=== PATIENT | male | born 1970 | race Caucasian/White ===

== ENCOUNTER 2017-09-29 10:43 | Emergency (ER) | payer BC ==
[~2017-09-29] VITALS: Ht 190.5 cm; Wt 97.7 kg
[2017-09-29 10:50] VITALS: Ht 190.5 cm; Wt 97.7 kg
[2017-09-29] MEDS ORDERED: COREG12.5 MG PO ×2 (11:12→11:45)
[2017-09-29] MEDS ORDERED: LISINOPRIL10 MG PO ×2 (11:13→13:11)
[2017-09-29] MEDS ORDERED: GEMFIBROZIL600 MG PO ×2 (11:13→13:11)
[2017-09-29 11:18] LABS: BASOPHILS 0.2 % (0-2); EOSINOPHILS 1.5 % (0-7); HEMATOCRIT 48.2 % (42.0-54.0); HEMOGLOBIN 17.1 g/dL (13.5-17.5); IMMATURE GRANULOCYTES 0.4 % (0-5); LYMPHOCYTES 30.2 % (15-50); MCHC 35.5 g/dL (31.0-37.0); MCV 95.8 fL (80.0-100.0); MEAN PLATELET VOLUME 10.6 fL (7.4-10.4); MONOCYTES 11.1 % (2-11); NEUTROPHILS 56.6 % (40-80); PLATELET COUNT 279 10x3/uL (130-400); RBC 5.03 10x6/uL (4.20-6.10); RDW 12.4 % (11.5-14.5); WBC 12.4 10x3/uL (4.8-10.8)
[2017-09-29 11:26] LABS: INR 0.96 (0.85-1.17); PROTIME 12.4 SECONDS (11.6-15.0)
[2017-09-29 11:39] LABS: ALBUMIN 4.3 g/dL (3.4-5.0); ALKALINE PHOSPHATASE 87 U/L (46-116); ALT (SGPT) 71 U/L (10-68); BILIRUBIN - TOTAL 0.69 mg/dL (0.2-1.3); CALC OSMOLALITY 275 mosm/kg (275-300); CALCIUM 9.7 mg/dL (8.5-10.1); CARBON DIOXIDE 22.4 mmol/L (21.0-32.0); CHLORIDE - SERUM 102 mmol/L (98-107); GLUCOSE 122 mg/dL (74-106); POTASSIUM - SERUM 4.5 mmol/L (3.5-5.1); PROTEIN - SERUM 8.2 g/dL (6.4-8.2); SODIUM 138 mmol/L (136-145); UREA NITROGEN 9 mg/dL (7-18); eGFR NON AFRICAN AMERICAN 86 mL/min (90-120)
[2017-09-29 12:07] LABS: CKMB 0.3 U/L (0.0-3.6); CREATINE KINASE 91 UL (21-232); PRO BNP 10 pg/mL (0-125); T4 THYROXINE 8.6 ug/dL (4.7-13.3)
[2017-09-29 12:09] LABS: TROPONIN-I < 0.017 ng/mL (0.000-0.060)
[2017-09-29 14:00] VITALS: BP 121/84
== END 2017-09-29 14:00 | disposition home or self-care (01) ==
LOC: D.ER 10:43
PROVIDERS: Emergency Medicine
DX: I47.1 Supraventricular tachycardia (principal); R00.2 Palpitations; F41.9 Anxiety disorder, unspecified; F17.200 Nicotine dependence, unspecified, uncomplicated

== ENCOUNTER → 2018-01-07 14:46 | Outpatient (CLI) | payer BC ==
[2017-09-29 10:50] VITALS: BMI 26.9
[~2018-01-07 14:46] MED LIST: CARDIZEM LA180 MG PO; COREG12.5 MG PO; GEMFIBROZIL600 MG PO; LISINOPRIL10 MG PO
[2018-01-07 17:34] LABS: CHOL - HDL RATIO 4.5 ratio (2.3-4.9); LDL-HDL RATIO 2.7 ratio (1.5-3.5)
== END | disposition home or self-care (01) ==
LOC: D.LABREF 14:46
PROVIDERS: Internal Medicine Cardiovascular Disease
DX: E78.5 Hyperlipidemia, unspecified (principal)

== ENCOUNTER 2018-01-19 13:19 | Emergency (ER) | payer BC ==
[~2018-01-19] VITALS: Ht 190.5 cm; Wt 100.0 kg
[~2018-01-19 13:19] MED LIST changes: -CARDIZEM LA180 MG PO
[2018-01-19] MEDS ORDERED: CARDIZEM LA180 MG PO (13:46)
[2018-01-19 14:06] LABS: BASOPHILS 0.4 % (0-2); EOSINOPHILS 1.2 % (0-7); HEMOGLOBIN 16.9 g/dL (13.5-17.5); IMMATURE GRANULOCYTES 0.4 % (0-5); LYMPHOCYTES 43.4 % (15-50); MCH 34.5 pg (26.0-34.0); MCV 95.9 fL (80.0-100.0); MEAN PLATELET VOLUME 10.8 fL (7.4-10.4); MONOCYTES 11.2 % (2-11); NEUTROPHILS 43.4 % (40-80); RDW 12.5 % (11.5-14.5); WBC 13.8 10x3/uL (4.8-10.8)
[2018-01-19 14:12] LABS: PLATELET COUNT 363 10x3/uL (130-400)
[2018-01-19 14:48] LABS: ALBUMIN 3.6 g/dL (3.4-5.0); ALKALINE PHOSPHATASE 68 U/L (46-116); ALT (SGPT) 34 U/L (10-68); BILIRUBIN - TOTAL 0.37 mg/dL (0.2-1.3); CALC OSMOLALITY 279 mosm/kg (275-300); CALCIUM 8.3 mg/dL (8.5-10.1); CARBON DIOXIDE 22.5 mmol/L (21.0-32.0); CHLORIDE - SERUM 107 mmol/L (98-107); CREATININE - SERUM 0.8 mg/dL (0.6-1.3); GLUCOSE 104 mg/dL (74-106); PROTEIN - SERUM 6.9 g/dL (6.4-8.2); SODIUM 141 mmol/L (136-145); UREA NITROGEN 11 mg/dL (7-18); eGFR NON AFRICAN AMERICAN > 90 mL/min (90-120)
[2018-01-19 14:58] LABS: CKMB 0.5 U/L (0.0-3.6); CREATINE KINASE 75 UL (21-232)
[2018-01-19 15:07] LABS: TROPONIN-I < 0.017 ng/mL (0.000-0.060)
[2018-01-19 15:20] VITALS: BP 113/82
[2018-01-19 15:36] VITALS: Ht 190.5 cm; Wt 100.0 kg
== END 2018-01-19 15:27 | disposition home or self-care (01) ==
LOC: D.ER 13:19
PROVIDERS: Emergency Medicine
DX: I47.1 Supraventricular tachycardia (principal); F17.200 Nicotine dependence, unspecified, uncomplicated

== ENCOUNTER → 2018-02-10 16:54 | Outpatient (CLI) | payer BC ==
[2018-01-19 15:36] VITALS: BMI 27.5
[~2018-02-10 16:54] MED LIST changes: +CARDIZEM LA180 MG PO
[2018-02-10 19:01] LABS: CHOL - HDL RATIO 3.6 ratio (2.3-4.9); LDL-HDL RATIO 1.6 ratio (1.5-3.5)
== END | disposition home or self-care (01) ==
LOC: D.LABREF 16:54
PROVIDERS: Internal Medicine Cardiovascular Disease
DX: E78.5 Hyperlipidemia, unspecified (principal)

== ENCOUNTER 2018-03-30 15:01 | Observation (INO) | payer BC ==
[2018-03-30] VITALS (9 sets, daily range): BP systolic 105–138; BP diastolic 60–86
[~2018-03-30] VITALS: Ht 190.5 cm; Wt 93.6 kg
--- NOTE | ~2018-03-30 | DS ---
PATIENT:GENTRY ENNIS :74 MEDICAL RECORD: [id number] DISCHARGE SUMMARY ADMISSION DATE: 03/30/18 DISCHARGE DATE: 03/31/18 DISCHARGE DIAGNOSES: 1. Chest pain compatible with angina. 2. Normal cardiac catheterizations. 3. History of supraventricular tachycardia. HOSPITAL COURSE: Mr. Ennis presents with palpitations and chest pain. He had no dysrhythmias during the hospital stay and cardiac catheterization was normal. Discharged home with no change in his medication. TRANSINT:[id number] Voice Confirmation ID: [id number] DOCUMENT ID: [id number] BRIAN OSULLIVAN MD CC: [id number] DICTATION DATE: 03/31/18 1012 SUPERVISOR FRUIT GRADING: 04/01/18 0031 DIS IN 03/31/18 [place] [id number] [place] [address]
--- NOTE | ~2018-03-30 | HEMODYNAMI ---
PATIENT:GENTRY GALLAGHER MEDICAL RECORD: [id number] : 74 LOCATION:[address] ADMISSION DATE: 03/30/18 Generatedon:03/31/201810:03 Patient name: GENTRY GALLAGHER Patient #: [id number] SSN: DO B: 1970 Date of study: 03/31/2018 Page: Of Hemodynamic Procedure Report Patient Data Patient Demographics Procedure consent was obtained First Name: GENTRY Gender: Male Last Name: ELLIOTT : 1970 Patient #: [id number] Age: 47 year(s) Race: Unknown Additional ID: [id number] Contact details Address: [place] [address] State: [place] City: [place] Zip code: [address] Past Medical History Allergies Allergen Reaction Date Comments Reported Morphine 03/31/2018 Admission Admission Data Admission Date: 03/30/2018 Admission Time: 17:39 Room #: 2139 Procedure Procedure Types Cath Procedure Diagnostic Procedure LHC LHC w/Coronaries Procedure Description Procedure Date Procedure Date: 03/31/2018 Procedure Start Time: 9:53 Procedure End Time: 10:02 Procedure Staff Name Function Juan Luis Kidd MD Performing Physician Lourdes Sanders RT Monitor Josefa Anderson RN Nurse Charli Blanca RT Scrub Procedure Data Cath Procedure Fluoroscopy Diagnostic fluoroscopy Total fluoroscopy Time: 2.3 time: 2.3 min min Diagnostic fluoroscopy Total fluoroscopy dose: 319 dose: 319 mGy mGy Contrast Material Contrast Material Type Amount (ml) Isovue 300 42 Entry Location Entry Primary Successful Side Size Upsize Upsize Entry Closure Weiner ccessful Closure Location (Fr) 1 (Fr) 2 (Fr) Remarks Device Remarks Radial Right 6 Fr Mechanical artery Short Compression Estimated blood loss: 5 ml Diagnostic catheters Device Type Used For End Catheter Placement DIAGNOSTIC Ogden 110cm 5 LV Angiography Fr catheter ([id number]) DIAGNOSTIC Ogden 110cm 5 Left Coronary Fr catheter ([id number]) Angiography DIAGNOSTIC AR2 MOD 5 Fr Right Coronary catheter ([id number]) Angiography Procedure Complications No complications Procedure Medications Medication Administration Route Dosage Benadryl I.V. 50 mg Oxygen etCO2 Nasal cannula 2 l/min Lidocaine 2% added to field 20 Heparin Flush Bag added to field 2 bags (1000units/500ml NS) 0.9% NaCl I.V. 100 ml/hr Radial Cocktail added to field 1 syringe (Verapomil 2mg/Nitro 400mcg/Heparin 1500units) Versed I.V. 2 mg Fentanyl I.V. 100 mcg Versed I.V. 2 mg Fentanyl I.V. 50 mcg Versed I.V. 2 mg Fentanyl I.V. 50 mcg Hemodynamics Rest Heart Rate: 71 (bpm) Snapshots Pre Cath Intra NCS Post Cath Vital Signs Time Heart Resp SPO2 etCO2 NIBP (mmHg) Rhythm Pain Sedation Rate (ipm) (%) (mmHg) Status Level (bpm) 9:36:15 69 15 98 0 139/93(112) NSR 0 (11) 10(A) , No pain 9:40:24 73 19 97 0 146/99(119) NSR 0 (11) 10(A) , No pain 9:44:38 75 13 95 30.3 124/91(101) NSR 0 (11) 10(A) , No pain 9:48:44 75 30 96 31.8 126/86(102) NSR 0 (11) 10(A) , No pain 9:52:54 68 16 94 35.6 117/78(98) NSR 0 (11) 10(A) , No pain 9:57:00 85 15 95 25.7 105/78(87) NSR 0 (11) 9(A) , No pain 10:01:04 77 18 94 32.6 124/73(98) NSR 0 (11) 10(A) , No pain Medications Time Medication Route Dose Verified Delivered Reason Notes Effectiveness by by 9:39:52 Benadryl I.V. 50 mg Juan Luis Rivero used for Bernabe Anderson muskrat trapper 9:42:52 Oxygen etCO2 2 l/min Juan Luis Rivero used for Nasal Beranbe Anderson muskrat trapper cannula 9:42:58 Lidocaine 2% added 20ml Juan Luis Mcknight for local to vial Bernabe Kidd MD anesthetic field 9:43:04 Heparin Flush added 2 bags Juan Luis Mcknight used for Bag to Bernabe Kidd MD procedure (1000units/500ml field NS) 9:43:13 0.9% NaCl I.V. 100 Juan Luis Rivero Per ml/hr Bernabe Anderson RN physician 9:43:20 Radial Cocktail added 1 Juan Luis Mcknight for (Verapomil to syringe Bernabe Kidd MD vasodilation 2mg/Nitro field 400mcg/Heparin 1500units) 9:49:48 Versed I.V. 2 mg Juan Luis Riveraie for sedation Bernabe Anderson RN 9:49:55 Fentanyl I.V. 100 mcg Juan Luis Riveraie for sedation Bernabe Anderson RN 9:54:54 Versed I.V. 2 mg Juan Luis Riveraie for sedation Bernabe Anderson RN 9:54:58 Fentanyl I.V. 50 mcg Juan Luis Riveraie for sedation Bernabe Anderson RN 9:58:02 Versed I.V. 2 mg Juan Luis Riveraie for sedation Bernabe Anderson RN 9:58:08 Fentanyl I.V. 50 mcg Juan Luis Rivero for sedation Bernabe Anderson RN Procedure Log Time Note 9:18:35 Time tracking: Regular hours (M-F 7:00 - 5:00) 9:18:40 Plan of Care:Hemodynamics will remain stable., Cardiac rhythm will remain stable., Comfort level will be maintained., Respiratory function will remain adequate., Patient/ family verbilizes understanding of procedure., Procedure tolerated without complication., Recovers from procedure without complications.. 9:19:28 Josefa Anderson RN sent for patient. Start room use. 9:30:08 Patient received from Med II to CCL 2 Alert and oriented. Tansferred to table in Supine position. 9:30:10 Warm blankets applied, and iona hugger turned on for patient comfort. 9:30:10 Correct patient and procedure confirmed by team. 9:30:17 Signed procedure consent form obtained from patient. 9:30:17 ECG and BP/O2 sat monitors applied to patient. 9:30:36 H&P Date Dictated: 03/30/2018 Emergent; H&P N/A. 9:35:04 Vital chart was started 9:35:08 Rhythm: sinus rhythm 9:35:09 Full Disclosure recording started 9:36:57 Baseline sample Acquired. 9:37:03 Pre-procedure instructions explained to patient. 9:37:07 Pre-op teaching completed and patient verbalized understanding. 9:37:22 Family in patients room. 9:37:28 Patient NPO since Midnight. 9:37:52 Patient allergic to Morphine 9:38:02 Is the patient allergic to Iodine/contrast media? No. 9:38:08 Is patient on blood thinner?Yes 9:38:20 ACC The patient was administered the following blood thiners within the last 24 hours: ACCPlavix 9:38:29 Patient diabetic? No. 9:38:43 ----Pre-sedation anethsthesia assessment.---- 9:38:49 Previous problem with sedation/anesthesia? No ? 9:38:52 Snore? Yes 9:38:56 Sleep apnea? No 9:38:59 Deviated septum? No 9:39:01 Opens mouth fully? Yes 9:39:02 Sticks out tongue? Yes 9:39:07 Airway obstruction? No ? 9:39:11 Dentures? No ? 9:39:41 IV patent on arrival in right antecubital with 0.9% NaCl at 100ml/hr. 9:39:52 Benadryl 50 mg I.V. was administered by Josefa Anderson RN; used for procedure; 9:40:11 Modified Riccardo's test Radial > 7 seconds. 9:40:33 Patient pain scale 0/10 ?. 9:42:52 Oxygen 2 l/min etCO2 Nasal cannula was administered by Josefa Anderson RN; used for procedure; 9:42:58 Lidocaine 2% 20ml vial added to field was administered by Juan Luis Kidd MD; for local anesthetic; 9:43:04 Heparin Flush Bag (1000units/500ml NS) 2 bags added to field was administered by Juan Luis Kidd MD; used for procedure; 9:43:13 0.9% NaCl 100 ml/hr I.V. was administered by Josefa Anderson RN; Per physician; 9:43:13 Right Radial & Right Groin area was prepped with chlora-prep and draped in sterile fashion 9:43:15 Alarms reviewed by R. N. 9:43:15 Sharps counted by scrub and verified by R.N. 9:43:20 Radial Cocktail (Verapomil 2mg/Nitro 400mcg/Heparin 1500units) 1 syringe added to field was administered by Juan Luis Kidd MD; for vasodilation; 9:43:20 Lab results completed and on chart. 9:43:25 Use device set Radial Dx or PCI 9:43:26 ACIST Syringe (41204) opened to sterile field. 9:43:26 Medline Cath Pack ([id number]) opened to sterile field. 9:43:27 Bag Decanter (2002S) opened to sterile field. 9:43:27 DIAGNOSTIC WIRE .035 260cm J wire (715935) opened to sterile field. 9:43:28 ACIST Hand Control (96677) opened to sterile field. 9:43:28 ACIST Manifold (82132) opened to sterile field. 9:43:29 Tegaderm 4 x 4 (1626W) opened to sterile field. 9:43:29 MBrace Wrist Support ([id number]) opened to sterile field. 9:43:30 SHEATH 6FR Slender (22-5162) opened to sterile field. 9:47:57 Zero performed for pressure channel P1 9:48:42 Final Timeout: patient, procedure, and site verified with staff and physician. All members of the team are in agreement. 9:48:45 Right Radial & Right Groin site verified by team. 9:48:47 Physical assessment completed. ASA score P 2 - A patient with mild systemic disease as per Juan Luis Kidd MD. 9:48:51 Sedation plan: IV Moderate Sedation Medication:Versed, Fentanyl 9:49:48 Versed 2 mg I.V. was administered by Josefa Anderson RN; for sedation; 9:49:55 Fentanyl 100 mcg I.V. was administered by Josefa Anderson RN; for sedation; 9:53:15 Procedure started. 9:53:20 Local anesthetic to right radial artery with Lidocaine 2% by Juan Luis Kidd MD.INITIAL ACCESS ONLY 9:53:55 A 6 Fr Short sheath was inserted into the Right Radial artery 9:54:42 A DIAGNOSTIC Ogden 110cm 5 Fr catheter (648531) was advanced over the wire and used for LV Angiography. 9:54:54 Versed 2 mg I.V. was administered by Josefa Anderson RN; for sedation; 9:54:58 Fentanyl 50 mcg I.V. was administered by Josefa Anderson RN; for sedation; 9:55:52 LV gram done using MOREIRA 9:56:02 Injector settings: Ml/sec: 5, Volume: 15, 9:56:07 EF : 60 % 9:56:42 A DIAGNOSTIC Ogden 110cm 5 Fr catheter ([id number]) was advanced over the wire and used for Left Coronary Angiography. removed unable to cannulate 9:57:43 A DIAGNOSTIC AR2 MOD 5 Fr catheter ([id number]) was advanced over the wire and used for Right Coronary Angiography. 9:58:02 Versed 2 mg I.V. was administered by Josefa Anderson RN; for sedation; 9:58:08 Fentanyl 50 mcg I.V. was administered by Josefa Anderson RN; for sedation; 9:58:13 Catheter removed. 9:59:11 COCIERGE ULT1 GUIDE CATHETER ADVANCED FOR LCA ANGIOGRAPHY (NO COST SUPPLY) 9:59:35 TR BAND Standard ([id number]) opened to sterile field. 9:59:49 Catheter removed. 10:00:07 Sheath removed intact; hemostasis achieved with Mechanical Compression to the Right Radial artery. 10:00:14 Procedure ended.(Physican Out) 10:00:23 Fluoroscopy time 02.30 minutes. 10:00:27 Fluoroscopy dose: 319 mGy 10:00:27 Flurop Dose total: 319 10:00:30 Contrast amount:Isovue 300 42ml. 10:00:31 Sharps counted by scrub and verified by R.N. 10:00:34 TR band inflated with 8cc of air. 10:00:35 Insertion/operative site no bleeding no hematoma. 10:00:47 Post right radial artery:stable, clean and dry 10:00:48 Post Procedure Pulses reassessed and unchanged 10:00:52 Post-procedure physical assessment completed. ASA score P 2 - A patient with mild systemic disease as per Juan Luis Kidd MD. 10:00:55 Post procedure rhythm: unchanged. 10:00:58 Estimated blood loss: 5 ml 10:00:59 Post procedure instruction explained to patient.Patient verbalizes understanding. 10:01:00 Patient needs reinforcement of post procedure teaching. 10:01:49 Procedure and supply charges have been captured, reviewed, submitted and are correct. 10:01:57 Procedure Complication : No complications 10:02:00 See physician's report for complete and final results. 10:02:20 Report given to Pre/Post Procedure Room. 10:02:23 Patient transfered to Pre/Post Procedure Room with Stretcher. 10:02:40 Procedure ended. 10:02:40 Full Disclosure recording stopped 10:02:46 End room use (Document Last) 10:03:29 Vital chart was stopped Device Usage Item Name Manufacture Quantity Catalog Hospital Part Current Minimal Lot# / Number Charge Number Stock Stock Serial# Code ACIST Acist 1 20335 [id number] [id number] [id number] 20 Syringe Medical (37517) Systems Inc Medline Medline 1 [id number] 067199 29045 085186 5 Cath Pack ([id number]) Bag Microtek 1 2001S 381705 05954 532552 5 Decanter Medical Inc. (2001S) DIAGNOSTIC [address] 1 379681 375017 111232 535196 30 WIRE .035 260cm J wire (351222) ACIST Hand Acist 1 16690 707604 527839 071262 5 Control Medical (36512) Systems Inc ACIST Acist 1 68763 747735 846341 445529 5 Manifold Medical (27837) Systems Inc Tegaderm 4 3M 1 1626W 088885 794486 445144 5 x 4 (1626W) MBrace Advanced 1 140-0250-00 143311 32900 065080 5 Wrist Vascular Support Dynamics ([id number]) SHEATH 6FR Terumo 1 [id number] 511078 594369 446407 40 Slender (80-1060) DIAGNOSTIC Terumo 1 40-8683 119585 174276 335947 5 Ogden 110cm 5 Fr catheter (385703) DIAGNOSTIC Cardinal 1 [id number] 379930 893809 941415 20 AR2 MOD 5 Health Fr catheter (056613O) TR BAND Terumo 1 [id number] 548320 524013 171055 40 Standard ([id number]) Signature Audit Dyer Stage Time Signature Unsigned Intra-Procedure 03/31/2018 [place] 10:03:26 AM Counts RT(R) Signatures Monitor : [place] Signature : Counts RT Date : Time : [facility] [address] [place] [address]
--- NOTE | ~2018-03-30 | OP ---
PATIENT NAME: GENTRY GALLAGHER MEDICAL RECORD: [id number] :74 [address]ATION:[address] [address] ADMISSION DATE:03/30/18 SURGEON: BRIAN OSULLIVAN MD DATE OF OPERATION: 03/31/2018 PROCEDURES: 1. Left heart catheterization. 2. Selective coronary angiography. 3. Left ventriculogram. INDICATION: Chest pain compatible with angina and abnormal nuclear stress test. PROCEDURE: After informed consent was obtained and after a detailed explanation of risks, benefits as well as alternative therapies, the patient elected to proceed with angiogram and angioplasty. The right radial area was prepped and draped in normal sterile fashion. Right radial artery was cannulated via modified Seldinger technique with placement of 5-Hungarian sheath. All catheters exchanged through this sheath. FINDINGS: The left ventriculogram was performed in standard 30-degree MOREIRA view, reveals good cardiac wall motion throughout all segments. Overall ejection fraction estimated 60%. SELECTIVE CORONARY ANGIOGRAPHY: Left main, left anterior descending, left circumflex, right coronary artery are all smooth-walled vessels with no angiographic evidence of coronary artery disease. OVERALL IMPRESSION: 1. No angiographic evidence of coronary artery disease. 2. Normal left heart pressures. 3. Normal left ventricular systolic function. Chest pain is noncardiac in etiology. No further cardiac workup needs to be ascertained. TRANSINT:[id number] Voice Confirmation ID: [id number] DOCUMENT ID: [id number] BRIAN OSULLIVAN MD CC: [id number] DICTATION DATE: 03/31/18 1011 TIN FLIPPER: 03/31/18 1142 ADM IN [place] [id number] [place] [address]
--- NOTE | ~2018-03-30 | HP ---
PATIENT: GENTRY ENNIS MEDICAL RECORD: [id number] ACCOUNT: [id number] LOCATION:[address] : 74 ADMISSION DATE: 03/30/18 PCP: BRIAN OSULLIVAN MD HISTORY AND PHYSICAL EXAMINATION DIAGNOSES: 1. Angina. 2. Abnormal nuclear stress test. 3. PSVT. 4. Hypertension. 5. Hyperlipidemia. HISTORY: Mr. Ennis presents with recurrent symptoms of shortness of breath and chest discomfort. He was feeling that he had palpitations as well. He had a history of PSVT. He recently had 2 episodes, converted with adenosine and one converted with a DC cardioversion. He underwent nuclear stress testing at our office which was abnormal with inferior ischemia. He has not undergone cardiac catheterization. REVIEW OF SYSTEMS: The patient reports easy bruising but reports no swollen glands. The patient reports no fever, no night sweats, no significant weight gain, no significant weight loss. No significant exercise tolerance. The patient reports no dry eyes, no irritation, no vision change. Patient reports no difficulty hearing and no ear pain. Patient reports no frequent nose bleeds or nose and sinus problems. Patient reports on arm pain on exertion. No shortness of breath while lying down. No history of heart murmur. Patient reports no cough, no wheezing or coughing up blood. Patient reports no abdominal pain, no vomiting. Normal appetite. No diarrhea and not vomiting blood. No nausea and no constipation. Patient reports no incontinence. No difficulty urinating. No hematuria. No increased frequency. Patient reports no muscle aches. No weakness, no arthralgias, no back pain. No swelling of the extremities. Patient reports no abnormal mole, no jaundice, no rashes. Reports no loss of consciousness. No weakness and no numbness. No seizures, dizziness, or headaches. The patient reports no depression, no sleep disturbance, feeling safe in a relationship and no alcohol abuse. Patient reports on fatigue. Reports no runny nose or sinus pressure. No itching, no hives, and no frequent sneezing. PHYSICAL EXAMINATION: GENERAL APPEARANCE: Well-nourished, well-developed, appears stated age. Level of distress, comfortable. PSYCHIATRIC: Mental status, alert, normal affect. Orientation, oriented to time, place and person. EYES: Lids and conjunctiva, noninjected. No discharge, no pallor. ENT: Lips, teeth, gums, normal dentition. Oropharynx, no cyanosis, no pallor. NECK: Carotid arteries, bilateral normal upstroke, no bruits, no thrills. JUGULAR VEINS: No jugular venous pressure or distention. CERVICAL LYMPH NODES: Nontender, nonenlarged. THYROID: Not enlarged. Nontender. No nodules. LUNGS: Respiratory effort, unlabored. CHEST: Normal curvature. No thoracic deformity. No chest wall tenderness. Percussion, resonant. Auscultation, clear. No wheezes, no rales, no rhonchi. CARDIOVASCULAR: Precordial exam, nondisplaced. No heaves or pericardial thrills. Rate and rhythm, regular. Heart sounds, normal S1, normal S2. No S3, no gallop, no rub. Systolic murmur, not heard. Diastolic murmur, not heard. HISTORY AND PHYSICAL [id number] GENTRY ENNIS EXTREMITIES: No cyanosis, no edema. Peripheral pulses, full and equal in all extremities, except as noted. No bruits appreciated. ABDOMEN: Soft, nondistended. Normal aorta. No bruit. Nontender. No masses. Liver, nontender, no hepatomegaly. Spleen, nontender, no splenomegaly. MUSCULOSKELETAL: No joint tenderness. No joint swelling. No erythema. NEUROLOGICAL: Normal gait, normal strength, normal tone. SKIN: Warm and dry. OVERALL IMPRESSION: Recurrent symptomatology, most likely secondary to ischemic heart disease. He is not having arrhythmia at this time. We will admit and plan for cardiac catheterization in the a.m. TRANSINT:[id number] Voice Confirmation ID: [id number] DOCUMENT ID: [id number] BRIAN OSULLIVAN MD at 1009 CC: [id number] DICTATION DATE: 03/30/18 1549 MAGAZINE EDITOR: 03/30/18 1741 ADM IN [facility] [address] [place] [address]
[2018-03-30 15:24] LABS: BASOPHILS 0.3 % (0-2); EOSINOPHILS 0.7 % (0-7); HEMATOCRIT 42.3 % (42.0-54.0); HEMOGLOBIN 15.3 g/dL (13.5-17.5); IMMATURE GRANULOCYTES 0.4 % (0-5); MCHC 36.2 g/dL (31.0-37.0); MEAN PLATELET VOLUME 10.3 fL (7.4-10.4); MONOCYTES 7.5 % (2-11); NEUTROPHILS 65.1 % (40-80); PLATELET COUNT 294 10x3/uL (130-400); RDW 12.2 % (11.5-14.5); WBC 10.2 10x3/uL (4.8-10.8)
[2018-03-30 16:08] LABS: MAGNESIUM - SERUM 1.9 mg/dL (1.8-2.4); THYROID STIMULATING HORMONE 0.98 uIU/mL (0.36-3.74)
[2018-03-30 16:28] LABS: ALBUMIN 4.7 g/dL (3.4-5.0); ALKALINE PHOSPHATASE 103 U/L (46-116); ALT (SGPT) 37 U/L (10-68); BILIRUBIN - TOTAL 0.53 mg/dL (0.2-1.3); CALC OSMOLALITY 268 mosm/kg (275-300); CALCIUM 9.4 mg/dL (8.5-10.1); CARBON DIOXIDE 18.9 mmol/L (21.0-32.0); CHLORIDE - SERUM 98 mmol/L (98-107); CREATININE - SERUM 0.8 mg/dL (0.6-1.3); GLUCOSE 104 mg/dL (74-106); POTASSIUM - SERUM 3.8 mmol/L (3.5-5.1); PROTEIN - SERUM 8.4 g/dL (6.4-8.2); SODIUM 135 mmol/L (136-145); UREA NITROGEN 9 mg/dL (7-18); eGFR NON AFRICAN AMERICAN > 90 mL/min (90-120)
[2018-03-30 16:38] LABS: CKMB 0.9 U/L (0.0-3.6); CREATINE KINASE 124 UL (21-232); PRO BNP 10 pg/mL (0-125)
[2018-03-30 16:40] LABS: TROPONIN-I < 0.017 ng/mL (0.000-0.060)
[2018-03-31] VITALS: BP 101/61
[2018-03-31 00:04] VITALS: BP 105/65; Ht 190.5 cm; Wt 93.6 kg
[2018-03-31 05:03] VITALS: BP 105/61
[2018-03-31 08:56] VITALS: BP 106/74
== END 2018-03-31 12:00 | disposition home or self-care (01) ==
LOC: D.ER 15:01 → OBSVTIME 17:39 → D.CLR 17:39 → D.EDHOLD 17:39 → D.M2 19:27 → D.CLR 03-31 10:22
PROVIDERS: Family Medicine
DX: R07.89 Other chest pain (principal); I10 Essential (primary) hypertension; E78.5 Hyperlipidemia, unspecified; I47.1 Supraventricular tachycardia

== ENCOUNTER 2018-12-09 13:12 | Emergency (ER) | payer BC ==
[~2018-12-09] VITALS: Ht 190.5 cm; Wt 100.0 kg
[2018-12-09 13:32] VITALS: Ht 190.5 cm; Wt 100.0 kg
[2018-12-09 14:02] LABS: ALBUMIN 4.5 g/dL (3.4-5.0); ALKALINE PHOSPHATASE 94 U/L (46-116); ALT (SGPT) 38 U/L (10-68); BASOPHILS 0.3 % (0-2); BILIRUBIN - TOTAL 0.35 mg/dL (0.2-1.3); CALC OSMOLALITY 276 mosm/kg (275-300); CALCIUM 9.4 mg/dL (8.5-10.1); CARBON DIOXIDE 20.7 mmol/L (21.0-32.0); CHLORIDE - SERUM 101 mmol/L (98-107); EOSINOPHILS 1.3 % (0-7); GLUCOSE 107 mg/dL (74-106); HEMATOCRIT 42.3 % (42.0-54.0); HEMOGLOBIN 15.6 g/dL (13.5-17.5); IMMATURE GRANULOCYTES 0.8 % (0-5); LYMPHOCYTES 34.8 % (15-50); MCH 33.4 pg (26.0-34.0); MCHC 36.9 g/dL (31.0-37.0); MCV 90.6 fL (80.0-100.0); MEAN PLATELET VOLUME 10.2 fL (7.4-10.4); MONOCYTES 10.6 % (2-11); NEUTROPHILS 52.2 % (40-80); PLATELET COUNT 316 10x3/uL (130-400); POTASSIUM - SERUM 3.4 mmol/L (3.5-5.1); PROTEIN - SERUM 8.2 g/dL (6.4-8.2); RBC 4.67 10x6/uL (4.20-6.10); RDW 12.9 % (11.5-14.5); SODIUM 138 mmol/L (136-145); UREA NITROGEN 14 mg/dL (7-18); WBC 9.3 10x3/uL (4.8-10.8); eGFR NON AFRICAN AMERICAN 85 mL/min (90-120)
[2018-12-09 14:14] LABS: CKMB 0.5 U/L (0.0-3.6); CREATINE KINASE 106 UL (21-232); TROPONIN-I < 0.017 ng/mL (0.000-0.060)
[2018-12-09] MEDS ORDERED: ATIVAN1 MG PO (15:45)
[2018-12-09 16:03] VITALS: BP 123/79
== END 2018-12-09 16:03 | disposition home or self-care (01) ==
LOC: D.ER 13:12
PROVIDERS: Emergency Medicine
DX: R42 Dizziness and giddiness (principal); I10 Essential (primary) hypertension; R00.2 Palpitations

== ENCOUNTER 2019-03-15 12:11 | Emergency (ER) | payer BC ==
[~2019-03-15] VITALS: Ht 190.5 cm; Wt 100.0 kg
[~2019-03-15 12:11] MED LIST changes: +ATIVAN1 MG PO
[2019-03-15 12:19] VITALS: Ht 190.5 cm; Wt 100.0 kg
[2019-03-15 12:38] LABS: BASOPHILS 0.4 % (0-2); EOSINOPHILS 1.4 % (0-7); HEMOGLOBIN 15.7 g/dL (13.5-17.5); IMMATURE GRANULOCYTES 0.8 % (0-5); LYMPHOCYTES 42.5 % (15-50); MCH 33.3 pg (26.0-34.0); MCHC 34.9 g/dL (31.0-37.0); MCV 95.3 fL (80.0-100.0); MEAN PLATELET VOLUME 10.1 fL (7.4-10.4); MONOCYTES 11.4 % (2-11); NEUTROPHILS 43.5 % (40-80); RBC 4.72 10x6/uL (4.20-6.10); RDW 12.7 % (11.5-14.5); WBC 8.5 10x3/uL (4.8-10.8)
[2019-03-15 12:46] LABS: INR 1.06 (0.85-1.17); PROTIME 13.3 SECONDS (11.6-15.0)
[2019-03-15 12:47] LABS: PLATELET COUNT 385 10x3/uL (130-400)
[2019-03-15 12:48] LABS: CALC OSMOLALITY 279 mosm/kg (275-300); CALCIUM 9.3 mg/dL (8.5-10.1); CARBON DIOXIDE 22.2 mmol/L (21.0-32.0); CHLORIDE - SERUM 103 mmol/L (98-107); CREATININE - SERUM 0.9 mg/dL (0.6-1.3); GLUCOSE 119 mg/dL (74-106); POTASSIUM - SERUM 3.9 mmol/L (3.5-5.1); SODIUM 140 mmol/L (136-145); UREA NITROGEN 13 mg/dL (7-18); eGFR NON AFRICAN AMERICAN > 90 mL/min (90-120)
[2019-03-15 13:04] LABS: ALBUMIN 4.3 g/dL (3.4-5.0); ALKALINE PHOSPHATASE 87 U/L (46-116); ALT (SGPT) 38 U/L (10-68); BILIRUBIN - TOTAL 0.38 mg/dL (0.2-1.3); CKMB 0.6 U/L (0.0-3.6); CREATINE KINASE 137 UL (21-232); MAGNESIUM - SERUM 2.1 mg/dL (1.8-2.4); PROTEIN - SERUM 8.2 g/dL (6.4-8.2); TROPONIN-I < 0.017 ng/mL (0.000-0.060)
[2019-03-15 13:08] LABS: APTT 25.5 SECONDS (22.8-39.4)
[2019-03-15] MEDS ORDERED: CARDIZEM LA180 MG PO (13:32)
[2019-03-15 14:27] VITALS: BP 106/82
== END 2019-03-15 14:28 | disposition home or self-care (01) ==
LOC: D.ER 12:11
PROVIDERS: Family Medicine
DX: I47.1 Supraventricular tachycardia (principal); I10 Essential (primary) hypertension; F17.210 Nicotine dependence, cigarettes, uncomplicated

== ENCOUNTER 2019-04-03 17:18 | Emergency (ER) | payer BC ==
[~2019-04-03] VITALS: Ht 190.5 cm; Wt 97.7 kg
[2019-04-03 17:26] VITALS: Ht 190.5 cm; Wt 97.7 kg
[2019-04-03 17:37] LABS: BASOPHILS 0.1 % (0-2); EOSINOPHILS 0.6 % (0-7); HEMATOCRIT 44.5 % (42.0-54.0); IMMATURE GRANULOCYTES 0.4 % (0-5); MCV 94.5 fL (80.0-100.0); MEAN PLATELET VOLUME 9.6 fL (7.4-10.4); NEUTROPHILS 67.9 % (40-80); PLATELET COUNT 350 10x3/uL (130-400); RBC 4.71 10x6/uL (4.20-6.10); RDW 12.3 % (11.5-14.5); WBC 15.7 10x3/uL (4.8-10.8)
[2019-04-03 17:46] LABS: CALC OSMOLALITY 270 mosm/kg (275-300); CALCIUM 9.7 mg/dL (8.5-10.1); CARBON DIOXIDE 20.8 mmol/L (21.0-32.0); CHLORIDE - SERUM 98 mmol/L (98-107); CREATININE - SERUM 0.8 mg/dL (0.6-1.3); GLUCOSE 103 mg/dL (74-106); INR 1.09 (0.85-1.17); POTASSIUM - SERUM 3.4 mmol/L (3.5-5.1); PROTIME 13.6 SECONDS (11.6-15.0); SODIUM 136 mmol/L (136-145); UREA NITROGEN 9 mg/dL (7-18); eGFR NON AFRICAN AMERICAN > 90 mL/min (90-120)
[2019-04-03 17:47] LABS: APTT 28.6 SECONDS (22.8-39.4)
[2019-04-03 18:03] LABS: ALBUMIN 4.6 g/dL (3.4-5.0); ALKALINE PHOSPHATASE 90 U/L (46-116); ALT (SGPT) 52 U/L (10-68); BILIRUBIN - TOTAL 0.56 mg/dL (0.2-1.3); CKMB 0.7 U/L (0.0-3.6); CREATINE KINASE 107 UL (21-232); MAGNESIUM - SERUM 1.8 mg/dL (1.8-2.4); PROTEIN - SERUM 8.6 g/dL (6.4-8.2); TROPONIN-I < 0.017 ng/mL (0.000-0.060)
[2019-04-03] MEDS ORDERED: COREG12.5 MG PO (18:48)
[2019-04-03] MEDS ORDERED: MATZIM LA240 MG PO (19:13)
[2019-04-03 19:31] VITALS: BP 99/64
== END 2019-04-03 19:31 | disposition home or self-care (01) ==
LOC: D.ER 17:18
PROVIDERS: Emergency Medicine
DX: I47.1 Supraventricular tachycardia (principal); I49.9 Cardiac arrhythmia, unspecified